=== PATIENT | female | born 1990 | race African-American/Black ===

== ENCOUNTER 2017-01-08 07:58 | Emergency (ER) | payer SELFPAY ==
[~2017-01-08] VITALS: Ht 162.6 cm; Wt 85.8 kg
[~2017-01-08 07:58] MED LIST: 12 HOUR DECONG120 M1 PO; AMOXICILLIN500 M1 PO; FLAGYL500 MG PO; NOHOMEMEDS; TESSALON PERLE100 MG PO
[2017-01-08] MEDS ORDERED: NAPROXEN500 MG PO (09:08)
[2017-01-08] MEDS ORDERED: PREDNISONE20 MG PO (09:08)
[2017-01-08] MEDS ORDERED: FLEXERIL10 MG PO (09:08)
[2017-01-08] MEDS ORDERED: MILK OF MAGN PO (09:08)
[2017-01-08 09:44] VITALS: BP 115/60
== END 2017-01-08 09:45 | disposition home or self-care (01) ==
LOC: EME 07:58
DX: M54.32 Sciatica, left side (principal); K59.00 Constipation, unspecified
CPT/HCPCS: 74020; 99281; 99284; J1885; J7512